=== PATIENT | male | born 1995 | race Caucasian/White ===

== ENCOUNTER 2018-03-14 02:11 | Outpatient (CLI) | payer SELFPAY | END 2018-03-14 02:12 | disposition critical access hospital (66) | LOC: EMS 02:11 | PROVIDERS: ATTEND Surgery | DX: R45.851 Suicidal ideations (principal) | CPT/HCPCS: A0425; A0429 ==

== ENCOUNTER 2018-03-14 02:32 | Emergency (ER) | payer SELFPAY ==
[2018-03-14 03:01] LABS: MUDS CUTOFF CONCENTRATIONS CUTOFF CONC BELOW:
[2018-03-14 03:12] LABS: AMPHETAMINE SCREEN,URINE NEGATIVE (NEGATIVE); BENZODIAZEPINES SCREEN, URINE NEGATIVE (NEGATIVE); COCAINE SCREEN URINE NEGATIVE (NEGATIVE); METHADONE SCREEN, URINE NEGATIVE (NEGATIVE); METHAMPHETAMINES SCREEN, URINE NEGATIVE (NEGATIVE); OPIATE SCREEN, URINE NEGATIVE (NEGATIVE); OXYCODONE SCREEN, URINE NEGATIVE (NEGATIVE); PROPOXYPHENE SCREEN, URINE NEGATIVE (NEGATIVE); TRICYCLIC ANTIDEPRESSANT,URINE NEGATIVE (NEGATIVE)
[2018-03-14 03:18] LABS: BASOPHILS # (AUTO) 0.1 10^3/uL (0.0-0.1); BASOPHILS % (AUTO) 0.7 %; EOSINOPHILS # (AUTO) 0.1 10^3/uL (0.0-0.7); EOSINOPHILS % (AUTO) 0.8 %; HGB - HEMOGLOBIN 16.2 g/dL (14.0-18.0); LYMPHOCYTES # (AUTO) 1.7 10^3/uL (1.5-3.5); LYMPHOCYTES % (AUTO) 19.9 %; MEAN CORPUSCULAR HEMOGLOBIN 31.4 pg (27.0-31.0); MEAN CORPUSCULAR HGB CONC 35.3 g/dL (32.0-36.0); MEAN PLATELET VOLUME 8.8 fL (7.4-11.4); MONOCYTES # (AUTO) 0.4 10^3/uL (0.0-1.0); MONOCYTES % (AUTO) 5.2 %; NEUTROPHILS # (AUTO) 6.2 10^3/uL (1.5-6.6); NEUTROPHILS % (AUTO) 73.4 %; PLT - PLATELET COUNT 270 10^3/uL (130-450); RED BLOOD COUNT 5.17 10^6/uL (4.70-6.10); RED CELL DISTRIBUTION WIDTH 14.1 % (12.0-15.0); WHITE BLOOD COUNT 8.5 x10^3/uL (4.8-10.8)
[2018-03-14 03:24] LABS: CALCIUM 9.9 mg/dL (8.5-10.3)
--- NOTE | 2018-03-14 03:26 | ED Physician Documentation ---
PD HPI MHE - Stated complaint Stated Complaint: SI - Chief complaint Chief Complaint: MHE - History obtained from History obtained from: Patient - History of Present Illness Primary symptom: Depression Contributing factors: Sig other Recently seen: Not recently seen - Additional information Additional information: patient was at a bar [place] with his girlfriend. Patient says he has been feeling depressed for weeks/months and tonight he wanted to talk to his girlfriend about this, as well as his thoughts about their relationship, but that he did not feel she was receptive to this conversation. Patient says that eventually someone else came up to him and told him to leave the girlfriend alone; patient says he did not know who this other person was. Patient says he then was driving home when he was pulled over by police and told he had to go to the ED for evaluation. Patient does not know who, if anyone, had contacted 911 or police, but patient says the police seemed to be looking for him (rather than having pulled him over randomly). Patient tells me he has been feeling depressed for several weeks, perhaps months. He says he has had vague suicidal thoughts but no specific plan and he denies intent to hurt himself (only has had thoughts). He says he has been evaluated for similar problems once in the past, approximately 9 years ago (he cannot recall if it was at [facility] or [facility]). Review of Systems GI: reports: Reviewed and negative Psychiatric: reports: Depressed. denies: Suicidal (vague thoughts of suicide but denies intent, denies plan), Homicidal, Hallucinations, Delusions PD PAST MEDICAL HISTORY - Past Medical History Past Medical History: Yes Psych: Anxiety, Other Other Past Medical History: SI; Smpkes Marijuana but no abuse. - Past Surgical History Past Surgical History: Yes Ortho: Other - Present Medications Home Medications: Ambulatory Orders Medication Instructions Recorded Confirmed No Known Home Medications 03/14/18 03/14/18 - Allergies Allergies/Adverse Reactions: Allergies Allergy/AdvReac Type Severity Reaction Status Date / Time No Known Drug Allergies Allergy Verified 03/14/18 03:07 - Social History Does the pt smoke?: Yes Smoking Status: Current every day smoker Does the pt drink ETOH?: Yes ETOH Use: Liquor Does the pt have substance abuse?: No - Immunizations Immunizations are current?: Yes - POLST Patient has POLST: No PD ED PE NORMAL - Vitals Vital signs reviewed: Yes - General General: Alert and oriented X 3, No acute distress, Well developed/nourished - Cardiac Cardiac: RRR, No murmur - Respiratory Respiratory: No respiratory distress, Clear bilaterally - Abdomen Abdomen: Soft, Non tender - Neuro Neuro: Alert and oriented X 3, Normal speech Eye Opening: Spontaneous Motor: Obeys Commands Verbal: Oriented GCS Score: 15 - Psych Psych: Normal mood, Normal affect Results - Vitals Vitals: Vital Signs - 24 hr 03/14/18 02:49 Temperature 36.8 C Heart Rate 54 L Respiratory 16 Rate Blood Pressure 147/87 H O2 Saturation 100 Oxygen O2 Source Room air - Labs Labs: Laboratory Tests 03/14/18 03/14/18 03/14/18 02:40 02:49 02:49 WBC 8.5 RBC 5.17 Hgb 16.2 Hct 46.0 MCV 89.0 MCH 31.4 H MCHC 35.3 RDW 14.1 Plt Count 270 MPV 8.8 Neut # (Auto) 6.2 Lymph # (Auto) 1.7 [place] # (Auto) 0.4 Eos # (Auto) 0.1 Baso # (Auto) 0.1 Absolute Nucleated RBC 0.00 Nucleated RBC % 0.1 Sodium 139 Potassium 3.8 Chloride 101 Carbon Dioxide 27 Anion Gap 11.0 BUN 12 Creatinine 1.0 Estimated GFR (MDRD) 94 Glucose 98 Calcium 9.9 Urine Opiates Screen NEGATIVE Ur Oxycodone Screen NEGATIVE Urine Methadone Screen NEGATIVE Ur Propoxyphene Screen NEGATIVE Ur Barbiturates Screen NEGATIVE Ur Tricyclics Screen NEGATIVE Ur Phencyclidine Scrn NEGATIVE Ur Amphetamine Screen NEGATIVE U Methamphetamines Scrn NEGATIVE U Benzodiazepines Scrn NEGATIVE Urine Cocaine Screen NEGATIVE U Cannabinoids Screen POSITIVE H Ethyl Alcohol 111.0 PD MEDICAL DECISION MAKING - ED course Complexity details: reviewed results, re-evaluated patient, considered differential, d/w patient ED course: Patient requests discharge home, wants to go home and get some sleep. He strongly denies suicidal intent or plan, although admits to vague suicidal thoughts recently and depressed mood for weeks/months. I offered SW consult in the morning to discuss options for either inpatient care or outpatient follow- up, which he declines. He does express interest in following-up outpatient for mental health, but he says he cannot afford it. I explained that SW would be best to give him options including with factoring in costs, but he again declines. I also offered telepsych consult and explained what this entails, but he declines this, as well. I do not have information at this point that would indicate need to hold patient in ED against his will:the information I have does not indicate an imminent danger to self or others at this time and thus he was discharged per his request. I encouraged him to return at any time he wants to be reevaluated - Sepsis Event Vital Signs: Vital Signs - 24 hr 03/14/18 02:49 Temperature 36.8 C Heart Rate 54 L Respiratory 16 Rate Blood Pressure 147/87 H O2 Saturation 100 Oxygen O2 Source Room air Departure - Departure Disposition: 01 Home, Self Care Clinical Impression: Alcoholic intoxication Qualifiers: Complication of substance-induced condition: uncomplicated Qualified Code(s): F10.920 - Alcohol use, unspecified with intoxication, uncomplicated Depression Qualifiers: Depression Type: unspecified Qualified Code(s): F32.9 - Major depressive disorder, single episode, unspecified Condition: Good Instructions: ED Depression, ED Alcohol Intoxication Follow-Up: [facility] [Provider Group] [facility] [Provider Group] Forms: Activity restrictions Discharge Date/Time: 03/14/18 04:41
[2018-03-14 04:41] VITALS: BP 134/79
== END 2018-03-14 04:41 | disposition home or self-care (01) ==
LOC: EDUNIT# → ED 02:32
DX: F10.920 Alcohol use, unspecified with intoxication, uncomplicated (principal); F32.9 Major depressive disorder, single episode, unspecified; F17.200 Nicotine dependence, unspecified, uncomplicated
CPT/HCPCS: 36415; 80048; 80306; 80320; 85025; 99283; 99284

== ENCOUNTER 2018-11-14 11:04 | Emergency (ER) | payer SELFPAY ==
[2018-11-14 11:12] VITALS: BP 174/75
[2018-11-14 11:35] LABS: BASOPHILS # (AUTO) 0.1 10^3/uL (0.0-0.1); BASOPHILS % (AUTO) 1.3 %; EOSINOPHILS # (AUTO) 0.4 10^3/uL (0.0-0.7); EOSINOPHILS % (AUTO) 5.6 %; HGB - HEMOGLOBIN 15.4 g/dL (14.0-18.0); LYMPHOCYTES # (AUTO) 2.3 10^3/uL (1.5-3.5); LYMPHOCYTES % (AUTO) 36.8 %; MEAN CORPUSCULAR HEMOGLOBIN 29.4 pg (27.0-31.0); MEAN CORPUSCULAR HGB CONC 33.3 g/dL (32.0-36.0); MEAN CORPUSCULAR VOLUME 88.5 fL (80.0-94.0); MEAN PLATELET VOLUME 8.9 fL (7.4-11.4); MONOCYTES # (AUTO) 0.5 10^3/uL (0.0-1.0); MONOCYTES % (AUTO) 7.9 %; NEUTROPHILS # (AUTO) 3.1 10^3/uL (1.5-6.6); NEUTROPHILS % (AUTO) 48.4 %; PLT - PLATELET COUNT 218 10^3/uL (130-450); RED BLOOD COUNT 5.22 10^6/uL (4.70-6.10); WHITE BLOOD COUNT 6.3 x10^3/uL (4.8-10.8)
[2018-11-14 11:46] LABS: ALBUMIN 4.9 g/dL (3.2-5.5); BILIRUBIN,TOTAL 0.7 mg/dL (0.2-1.0); CALCIUM 9.5 mg/dL (8.5-10.3); CREATININE 1.2 mg/dL (0.6-1.2); TOTAL PROTEIN 7.4 g/dL (6.7-8.2)
[2018-11-14 13:01] LABS: BILIRUBIN,URINE NEGATIVE (NEGATIVE); GLUCOSE, URINE (UA) NEGATIVE (NEGATIVE); KETONES,URINE (UA) NEGATIVE (NEGATIVE); LEUKOCYTE ESTERASE, URINE NEGATIVE (NEGATIVE); NITRITE,URINE NEGATIVE (NEGATIVE); OCCULT BLOOD,URINE NEGATIVE (NEGATIVE); PH,URINE 5.5 PH (5.0-7.5); PROTEIN,URINE NEGATIVE (NEGATIVE); UROBILINOGEN,URINE 0.2 (NORMAL) E.U./dL (NORMAL)
[2018-11-14 13:15] LABS: CLARITY,URINE CLEAR (CLEAR)
--- NOTE | 2018-11-14 13:23 | ED Physician Documentation ---
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 He has been having episodes of nausea and vomiting about once or twice per month and these last 2 days to a week. He has lost 30 pounds in the past 6 months. He states that he is asked by his employer to come to the emergency department for evaluation to be cleared to be able to come back to work. The patient ind icates that the symptoms that he is having cyclically have been going on for several months before he started working at [employer]. He does state that the smell of the flux does make him nauseous but he does not believe that this is the cause of his symptoms. He does use cannabis on a regular basis he does not believe he has excessive use of cannabis and he is unaware of cannabis hyperemesis syndrome. Review of Systems Constitutional: denies: Fever Eyes: denies: Decreased vision, Photophobia Ears: denies: Ear pain Nose: denies: Rhinorrhea / runny nose, Congestion Throat: denies: Sore throat Cardiac: denies: Chest pain / pressure, Palpitations Respiratory: denies: Dyspnea, Cough GI: reports: Nausea, Vomiting. denies: Abdominal Pain : denies: Dysuria, Frequency PD PAST MEDICAL HISTORY - Past Medical History Past Medical History: Yes Psych: Anxiety, Other - Past Surgical History Past Surgical History: Yes Ortho: Other - Present Medications Home Medications: Ambulatory Orders Medication Instructions Recorded Confirmed Ondansetron Odt [Zofran] 4 mg TL Q6H PRN #10 tablet 11/14/18 - Allergies Allergies/Adverse Reactions: Allergies Allergy/AdvReac Type Severity Reaction Status Date / Time No Known Drug Allergies Allergy Verified 11/14/18 11:12 - Social History Does the pt smoke?: Yes Smoking Status: Current every day smoker Does the pt drink ETOH?: Yes Does the pt have substance abuse?: No - Immunizations Immunizations are current?: Yes - POLST Patient has POLST: No PD ED PE NORMAL - Vitals Vital signs reviewed: Yes (hypertensive mild ) - General General: Alert and oriented X 3, No acute distress, Well developed/nourished - HEENT HEENT: Atraumatic, PERRL, EOMI - Neck Neck: Supple, no meningeal sign - Cardiac Cardiac: RRR, No murmur - Respiratory Respiratory: No respiratory distress, Clear bilaterally - Abdomen Abdomen: Normal bowel sounds, Soft, Non tender, Non distended, No organomegaly - Back Back: No CVA TTP, No spinal TTP - Derm Derm: Normal color, Warm and dry, No rash - Extremities Extremities: No deformity, No edema - Neuro Neuro: Alert and oriented X 3, trolley cleaner 2-12 intact, No motor deficit, No sensory deficit, Normal speech Eye Opening: Spontaneous Motor: Obeys Commands Verbal: Oriented GCS Score: 15 - Psych Psych: Normal mood, Normal affect Results - Vitals Vitals: Vital Signs - 24 hr 11/14/18 11:06 Temperature 36.6 C Heart Rate 70 Respiratory 14 Rate Blood Pressure 174/75 H O2 Saturation 97 Oxygen O2 Source Room air - Labs Labs: Laboratory Tests 11/14/18 11/14/18 11/14/18 11:28 11:28 12:15 WBC 6.3 RBC 5.22 Hgb 15.4 Hct 46.2 MCV 88.5 MCH 29.4 MCHC 33.3 RDW 14.0 Plt Count 218 MPV 8.9 Neut # (Auto) 3.1 Lymph # (Auto) 2.3 [place] # (Auto) 0.5 Eos # (Auto) 0.4 Baso # (Auto) 0.1 Absolute Nucleated RBC 0.00 Nucleated RBC % 0.1 Sodium 143 Potassium 4.3 Chloride 107 Carbon Dioxide 27 Anion Gap 9.0 BUN 11 Creatinine 1.2 Estimated GFR (MDRD) 76 L Glucose 112 H Calcium 9.5 Total Bilirubin 0.7 AST 18 ALT 15 Alkaline Phosphatase 35 L Total Protein 7.4 Albumin 4.9 Globulin 2.5 Albumin/Globulin Ratio 2.0 Lipase 29 Urine Color YELLOW Urine Clarity CLEAR Urine pH 5.5 Ur Specific [place] >=1.030 H Urine Protein NEGATIVE Urine Glucose (UA) NEGATIVE Urine Ketones NEGATIVE Urine Occult Blood NEGATIVE Urine Nitrite NEGATIVE Urine Bilirubin NEGATIVE Urine Urobilinogen 0.2 (NORMAL) Ur Leukocyte Esterase NEGATIVE Ur Microscopic Review NOT INDICATED Urine Culture Comments NOT INDICATED Procedures - IVC sono (time) 1320 Bedside IVC sono: IVC measures (cm) (2.01), Euvolemia PD MEDICAL DECISION MAKING - ED course Complexity details: reviewed results, re-evaluated patient, considered differ ential, d/w patient ED course: 23-year-old male with episodic vomiting is a cannabis user and I have discussed with him cannabis hyperemesis as a possible contributing cause to his symptoms and I provided a prescription for some Zofran and a note for him to be able to return to work as I do not believe his work is the cause of his symptoms as the preceded his work at [employer]. I have asked the patient to follow-up with gastroenterology. Departure - Departure Disposition: Home, Self Care Clinical Impression: Cyclical vomiting with nausea Qualifiers: Vomiting Intractability: non-intractable Qualified Code(s): G43.A0 - Cyclical vomiting, not intractable Condition: Stable Instructions: ED Nausea Vomiting Follow-Up: [facility] [Provider Group] Prescriptions: Ondansetron Odt [Zofran] 4 mg TL Q6H PRN #10 tablet PRN Reason: Nausea / Vomiting Comments: Today your vomiting appears to have been in a cyclical fashion and this is consistent with a possibility of cannabis hyperemesis syndrome. My recommendation is to discontinue the use of cannabis for at least 1 month. It may take longer to have your symptoms completely resolved. I have provided a prescription for some Zofran which is a medication to use under your tongue for nausea. Try this the next time you have nausea and vomiting. I do not believe that your symptoms are related to the exposure you have at work. Forms: Activity restrictions
== END 2018-11-14 13:37 | disposition home or self-care (01) ==
LOC: ED 11:04
DX: G43.A0 Cyclical vomiting, in migraine, not intractable (principal); F12.90 Cannabis use, unspecified, uncomplicated; F17.200 Nicotine dependence, unspecified, uncomplicated
CPT/HCPCS: 36415; 80053; 81001; 81003; 83690; 85025; 87086; 99283